=== PATIENT | female | born 1990 | race Caucasian/White ===

== ENCOUNTER 2018-07-03 15:15 | Emergency (ER) | payer SELFPAY ==
[~2018-07-03 15:15] MED LIST: METR500T15 PO; NAPR550T22 PO; ONDA4TAB PO; PROM-110 PO; TRAM-420 PO
--- NOTE | 2018-07-03 15:53 | ER Report ---
History and Physical Time Seen By MD: 15:42 Hx. of Stated Complaint: wants a psych eval, no feeling suicidal and does not want admit HPI/ROS CHIEF COMPLAINT: Manic HISTORY OF PRESENT ILLNESS: 28-year-old female patient presents to the emergency room with complaint of being manic. Patient states that she has been manic for the past few weeks. He states that she's really been eating. She states that she is sleeping some. But states that she has been going at the bars and drinking heavily. She states that she did cheat on her fianc once. She states that she is not having any suicidal ideation. She states that she has not had any thoughts of self-harm. She has had episodes of self-harm approximately one year ago. She states that she is being started on the new medication which per prescribed by an outside provider. She states that she has an appointment with counseling tomorrow. She states she has lots of plans for lab work as well as for job. When asked patient to be admitted she states she would prefer not to. REVIEW OF SYSTEMS: Respiratory: No cough, no dyspnea. Cardiovascular: No chest pain, no palpitations. Gastrointestinal: No vomiting, no abdominal pain. Musculoskeletal: No back pain. Allergies: Coded Allergies: No Known Drug Allergies (Unverified , 11/06/15) Home Meds Reported Medications [rezalti] No Conflict Check 07/03/18 Discontinued Reported Medications Metronidazole (METRONIDAZOLE) 500 Mg Tablet, 500 MG PO BID, TAB 11/06/15 Past Medical/Surgical History Patient has a past medical history of ovarian cyst, frequent UTI, pelvic fracture, hypothyroidism, prior meth abuse, bipolar, anxiety, depression, suicide attempt. Patient has surgical history of an ovary removed. Reviewed Nurses Notes: Yes Hx Smoking: No Smoking Status: Never Smoker Exposure to Second Hand Smoke?: Yes Hx Substance Use Disorder: Yes (prior meth use) Hx Alcohol Use: Yes Constitutional Vital Sign - Last 24 Hours 07/03/18 07/03/18 07/03/18 15:35 17:03 17:08 Temp 97.0 Pulse 82 Resp 18 B/P (MAP) 129/94 127/86 (100) Pulse Ox 92 O2 Delivery Room Air Room Air Physical Exam General Appearance: The patient is alert, has no immediate need for airway protection and no current signs of toxicity. Respiratory: Chest is non tender, lungs are clear to auscultation. Cardiac: regular rate and rhythm Gastrointestinal: Abdomen is soft and non tender, no masses, bowel sounds normal. Musculoskeletal: Neck: Neck is supple and non tender. Extremities have full range of motion and are non tender. Skin: No rashes or lesions. DIFFERENTIAL DIAGNOSIS: After history and physical exam differential diagnosis was considered for depression, manic episode. Medical Decision Making Data Points Result Diagram: 07/03/18 1622 07/03/18 1622 Laboratory Hematology Test 07/03/18 15:35 07/03/18 16:22 Urine Color Yellow Urine Clarity Slightly-cloudy Urine pH 5.0 pH (4.8-9.5) Urine Specific [place] 1.021 Urine Protein Negative mg/dL (NEGATIVE) Urine Glucose (UA) Negative mg/dL (NEGATIVE) Urine Ketones Negative mg/dL (NEGATIVE) Urine Blood Negative (NEGATIVE) Urine Nitrite Negative (NEGATIVE) Urine Bilirubin Negative (NEGATIVE) Urine Urobilinogen Negative mg/dL (0.2-1.9) Urine Leukocyte Esterase Negative (NEGATIVE) Urine RBC None /HPF (0-2/HPF) Urine WBC 1 /HPF (0-5/HPF) Urine Squamous Epithelial Cells Many /LPF (</=FEW) Urine Bacteria Negative /HPF (NONE-FEW) Urine Mucus None /HPF (NONE-FEW) Urine HCG, Qualitative Negative (NEGATIVE) Urine Opiates Screen Negative Urine Barbiturates Screen Negative Ur Tricyclic Antidepressants Screen Negative Urine Phencyclidine Screen Negative Urine Amphetamines Screen Negative Urine Benzodiazepines Screen Negative Urine Cocaine Screen Negative Urine Cannabinoids Screen Positive Red Blood Count 4.59 M/uL (4.17-5.56) Mean Corpuscular Volume 91.8 fL (80.0-96.0) Mean Corpuscular Hemoglobin 31.2 pg (26.0-33.0) Mean Corpuscular Hemoglobin Concent 34.0 g/dL (32.0-36.0) Red Cell Distribution Width 13.1 % (11.5-14.5) Mean Platelet Volume 9.3 fL (7.2-11.1) Neutrophils (%) (Auto) 68.1 % (39.4-72.5) Lymphocytes (%) (Auto) 22.5 % (17.6-49.6) Monocytes (%) (Auto) 8.1 % (4.1-12.4) Eosinophils (%) (Auto) 0.5 % (0.4-6.7) Basophils (%) (Auto) 0.8 % (0.3-1.4) Nucleated RBC Relative Count (auto) 0.0 /100WBC Neutrophils # (Auto) 6.2 K/uL (2.0-7.4) Lymphocytes # (Auto) 2.0 K/uL (1.3-3.6) Monocytes # (Auto) 0.7 K/uL (0.3-1.0) Eosinophils # (Auto) 0.0 K/uL (0.0-0.5) Basophils # (Auto) 0.1 K/uL (0.0-0.1) Nucleated RBC Absolute Count (auto) 0.00 K/uL Sodium Level 137 mmol/L (137-145) Potassium Level 4.4 mmol/L (3.5-5.0) Chloride Level 103 mmol/L (98-107) Carbon Dioxide Level 23 mmol/L (22-31) Blood Urea Nitrogen 19 mg/dl (7-18) Creatinine 0.70 mg/dl (0.52-1.04) Glomerular Filtration Rate Calc > 60.0 Random Glucose 95 mg/dl (75-110) Calcium Level 9.6 mg/dl (8.4-10.2) Magnesium Level 1.9 mg/dl (1.7-2.2) Total Bilirubin 0.3 mg/dl (0.2-1.3) Aspartate Amino Transf (AST/SGOT) 22 U/L (0-35) Alanine Aminotransferase (ALT/SGPT) 24 U/L (0-56) Alkaline Phosphatase 85 U/L (0-126) Total Protein 9.2 g/dl (6.3-8.2) Albumin 4.9 g/dl (3.5-5.0) Salicylates Level < 10 mg/L Salicylate Last Dose Date unk Acetaminophen Level < 10 ug/ml Serum Alcohol < 10 mg/dl Chemistry Test 07/03/18 15:35 07/03/18 16:22 Urine Color Yellow Urine Clarity Slightly-cloudy Urine pH 5.0 pH (4.8-9.5) Urine Specific [place] 1.021 Urine Protein Negative mg/dL (NEGATIVE) Urine Glucose (UA) Negative mg/dL (NEGATIVE) Urine Ketones Negative mg/dL (NEGATIVE) Urine Blood Negative (NEGATIVE) Urine Nitrite Negative (NEGATIVE) Urine Bilirubin Negative (NEGATIVE) Urine Urobilinogen Negative mg/dL (0.2-1.9) Urine Leukocyte Esterase Negative (NEGATIVE) Urine RBC None /HPF (0-2/HPF) Urine WBC 1 /HPF (0-5/HPF) Urine Squamous Epithelial Cells Many /LPF (</=FEW) Urine Bacteria Negative /HPF (NONE-FEW) Urine Mucus None /HPF (NONE-FEW) Urine HCG, Qualitative Negative (NEGATIVE) Urine Opiates Screen Negative Urine Barbiturates Screen Negative Ur Tricyclic Antidepressants Screen Negative Urine Phencyclidine Screen Negative Urine Amphetamines Screen Negative Urine Benzodiazepines Screen Negative Urine Cocaine Screen Negative Urine Cannabinoids Screen Positive White Blood Count 9.1 k/uL (4.5-11.0) Red Blood Count 4.59 M/uL (4.17-5.56) Hemoglobin 14.3 g/dL (12.0-16.0) Hematocrit 42.1 % (34.0-47.0) Mean Corpuscular Volume 91.8 fL (80.0-96.0) Mean Corpuscular Hemoglobin 31.2 pg (26.0-33.0) Mean Corpuscular Hemoglobin Concent 34.0 g/dL (32.0-36.0) Red Cell Distribution Width 13.1 % (11.5-14.5) Platelet Count 471 K/uL (150-450) Mean Platelet Volume 9.3 fL (7.2-11.1) Neutrophils (%) (Auto) 68.1 % (39.4-72.5) Lymphocytes (%) (Auto) 22.5 % (17.6-49.6) Monocytes (%) (Auto) 8.1 % (4.1-12.4) Eosinophils (%) (Auto) 0.5 % (0.4-6.7) Basophils (%) (Auto) 0.8 % (0.3-1.4) Nucleated RBC Relative Count (auto) 0.0 /100WBC Neutrophils # (Auto) 6.2 K/uL (2.0-7.4) Lymphocytes # (Auto) 2.0 K/uL (1.3-3.6) Monocytes # (Auto) 0.7 K/uL (0.3-1.0) Eosinophils # (Auto) 0.0 K/uL (0.0-0.5) Basophils # (Auto) 0.1 K/uL (0.0-0.1) Nucleated RBC Absolute Count (auto) 0.00 K/uL Glomerular Filtration Rate Calc > 60.0 Calcium Level 9.6 mg/dl (8.4-10.2) Magnesium Level 1.9 mg/dl (1.7-2.2) Total Bilirubin 0.3 mg/dl (0.2-1.3) Aspartate Amino Transf (AST/SGOT) 22 U/L (0-35) Alanine Aminotransferase (ALT/SGPT) 24 U/L (0-56) Alkaline Phosphatase 85 U/L (0-126) Total Protein 9.2 g/dl (6.3-8.2) Albumin 4.9 g/dl (3.5-5.0) Salicylates Level < 10 mg/L Salicylate Last Dose Date unk Acetaminophen Level < 10 ug/ml Serum Alcohol < 10 mg/dl Toxicology Test 07/03/18 15:35 07/03/18 16:22 Urine Opiates Screen Negative Urine Barbiturates Screen Negative Ur Tricyclic Antidepressants Screen Negative Urine Phencyclidine Screen Negative Urine Amphetamines Screen Negative Urine Benzodiazepines Screen Negative Urine Cocaine Screen Negative Urine Cannabinoids Screen Positive Salicylates Level < 10 mg/L Salicylate Last Dose Date unk Acetaminophen Level < 10 ug/ml Serum Alcohol < 10 mg/dl Urinalysis Test 07/03/18 15:35 Urine Color Yellow Urine Clarity Slightly-cloudy Urine pH 5.0 pH (4.8-9.5) Urine Specific [place] 1.021 Urine Protein Negative mg/dL (NEGATIVE) Urine Glucose (UA) Negative mg/dL (NEGATIVE) Urine Ketones Negative mg/dL (NEGATIVE) Urine Blood Negative (NEGATIVE) Urine Nitrite Negative (NEGATIVE) Urine Bilirubin Negative (NEGATIVE) Urine Urobilinogen Negative mg/dL (0.2-1.9) Urine Leukocyte Esterase Negative (NEGATIVE) Urine RBC None /HPF (0-2/HPF) Urine WBC 1 /HPF (0-5/HPF) Urine Squamous Epithelial Cells Many /LPF (</=FEW) Urine Bacteria Negative /HPF (NONE-FEW) Urine Mucus None /HPF (NONE-FEW) Urine HCG, Qualitative Negative (NEGATIVE) ED Course/Re-evaluation ED Course Patient was admitted to an exam room, history is obtained. Differential diagnoses were considered. On examination lungs are clear, heart is regular, abdomen is soft and nontender. I do worry patient is having some self- destructive behaviors caused by her manic episode. She has had intercourse with person is not her fianc. She also has been spending more money than she should at the bar. I did have the behavioral health integration technician come down and talk with her. We did discuss options and resources in the community. She also has the crisis line that she can call. Patient states she does feel significantly improved. She states she does not want to be admitted to behavioral health unit. She states she does feel better knowing that she will be able to be admitted and get her pete stabilized if need be. We will go ahead and discharge patient home at this time. She is to go ahead and take the medications that she has been prescribed by her primary care provider today. Patient and her fianc verbalized understanding and agreement with plan. Decision to Disposition Date: Jul 03, 2018 Decision to Disposition Time: 16:45 Depart Departure Latest Vital Signs Vital Signs Date Time Temp Pulse Resp B/P (MAP) Pulse Ox O2 Delivery O2 Flow Rate FiO2 07/03/18 17:08 82 92 Room Air 07/03/18 17:03 127/86 (100) 07/03/18 15:35 97.0 18 Impression: Primary Impression: Bipolar disorder, manic Condition: Condition Unchanged Disposition: HOME OR SELF-CARE Patient Instructions: Bipolar Disorder (ED) Additional Instructions: Follow up with your counselor tomorrow. Get plenty of rest. Try to avoid activities that could be self destructive. Return to the ER if condition worsens. Continue with current medications. NAN LANGLEY Jul 03, 2018 15:53
[2018-07-03] MEDS ORDERED: [UNRECOGNIZED DRUG - OTHER] (16:15)
[2018-07-03 16:29] LABS: PLATELET COUNT, AUTOMATED 471 K/uL (150-450)
[2018-07-03 17:03] VITALS: BP 127/86
== END 2018-07-03 17:18 | disposition home or self-care (01) ==
LOC: ER 15:59
DX: F31.89 Other bipolar disorder (principal)
CPT/HCPCS: 80305; 80320; 80329; 81001; 81025; 82040; 82247; 82310; 82374; 82435; 82565; 82947; 83735; 84075; 84132; 84155; 84295; 84443; 84450; 84460; 84520; 85025; 99283

== ENCOUNTER 2018-07-13 19:57 | Emergency (ER) | payer SELFPAY ==
[~2018-07-13 19:57] MED LIST changes: +[UNRECOGNIZED DRUG - OTHER]
[2018-07-13 20:02] VITALS: BP 129/91
--- NOTE | 2018-07-13 20:06 | ER Report ---
History and Physical Time Seen By MD: 20:06 HPI/ROS CHIEF COMPLAINT: Fall with loss of consciousness, difficulty concentrating since HISTORY OF PRESENT ILLNESS: 28-year-old female patient presents to emergency room with complaint of fall. She states that she had gone to [place] and went to the [place]. Patient states that she had gotten out of the [place] and slipped on the ice. She did hit her head and had a period of LOC. She states that she came to that she did have headache, irritability, difficulty concentrating. She states that has persisted since then. She states that she woke up this morning she is very groggy. She denies any vomiting, however she states that she has been nauseated. Patient states she has not taken any medication for this. The patient's significant other did consult with his father, who is a radiologist, who recommended that they get a CAT scan of her head. Patient states that she does have some neck pain and pain to the left upper arm. REVIEW OF SYSTEMS: Respiratory: No cough, no dyspnea. Cardiovascular: No chest pain, no palpitations. Gastrointestinal: No vomiting, no abdominal pain. Musculoskeletal: As noted above Allergies: Coded Allergies: No Known Drug Allergies (Unverified , 07/13/18) Home Meds Active Scripts Ondansetron Hcl (ZOFRAN) 4 Mg Tablet, 4 MG PO Q6H PRN for NAUSEA/VOMITING, #20 TAB Prov:NAN LANGLEY [facility] 07/13/18 Ketorolac Tromethamine (KETOROLAC TROMETHAMINE) 10 Mg Tab, 10 MG PO Q6H, #20 TAB Prov:NAN LANGLEY [facility] 07/13/18 Reported Medications [rezalti] No Conflict Check 07/03/18 Past Medical/Surgical History Patient has a past medical history of ovarian cyst, frequent UTI, pelvic fracture, hypothyroidism, prior meth abuse, alcohol abuse, bipolar, anxiety, depression, suicide attempt. Patient has a surgical history of surgery on her ovary. Reviewed Nurses Notes: Yes Hx Smoking: No Smoking Status: Never Smoker Exposure to Second Hand Smoke?: Yes Hx Substance Use Disorder: Yes (prior meth use) Hx Alcohol Use: Yes Constitutional Vital Sign - Last 24 Hours 07/13/18 20:02 Temp 98.3 Pulse 95 Resp 16 B/P (MAP) 129/91 Pulse Ox 97 O2 Delivery Room Air Physical Exam General Appearance: The patient is alert, has no immediate need for airway protection and no current signs of toxicity. Eyes: Pupils equal and round no injection. Pupils are equal round reactive to light, extraocular movements are intact. Respiratory: Chest is non tender, lungs are clear to auscultation. Cardiac: regular rate and rhythm Gastrointestinal: Abdomen is soft and non tender, no masses, bowel sounds normal. Musculoskeletal: Neck: Neck is supple and tender to palpation. Extremities have full range of motion and are non tender. Skin: No rashes or lesions. Neuro: Patient is alert and oriented 4, cranial nerves II through XII grossly intact, patient was able to complete 3 word recall 3/3 at zero minutes, 3/3 at 5 minutes. Patient was able to complete serial sevens. DIFFERENTIAL DIAGNOSIS: After history and physical exam differential diagnosis was considered for head injury including but not limited to concussion, skull fracture, intraparenchymal contusion, subarachnoid, subdural and epidural hematoma. Medical Decision Making Data Points Laboratory Hematology Test 07/13/18 20:24 Urine Color Yellow Urine Clarity Clear Urine pH 6.0 pH (4.8-9.5) Urine Specific [place] 1.013 Urine Protein Negative mg/dL (NEGATIVE) Urine Glucose (UA) Negative mg/dL (NEGATIVE) Urine Ketones Negative mg/dL (NEGATIVE) Urine Blood Negative (NEGATIVE) Urine Nitrite Negative (NEGATIVE) Urine Bilirubin Negative (NEGATIVE) Urine Urobilinogen Negative mg/dL (0.2-1.9) Urine Leukocyte Esterase Negative (NEGATIVE) Urine RBC 1 /HPF (0-2/HPF) Urine WBC None /HPF (0-5/HPF) Urine Squamous Epithelial Cells Many /LPF (</=FEW) Urine Bacteria Negative /HPF (NONE-FEW) Urine Mucus None /HPF (NONE-FEW) Chemistry Test 07/13/18 20:24 Urine Color Yellow Urine Clarity Clear Urine pH 6.0 pH (4.8-9.5) Urine Specific [place] 1.013 Urine Protein Negative mg/dL (NEGATIVE) Urine Glucose (UA) Negative mg/dL (NEGATIVE) Urine Ketones Negative mg/dL (NEGATIVE) Urine Blood Negative (NEGATIVE) Urine Nitrite Negative (NEGATIVE) Urine Bilirubin Negative (NEGATIVE) Urine Urobilinogen Negative mg/dL (0.2-1.9) Urine Leukocyte Esterase Negative (NEGATIVE) Urine RBC 1 /HPF (0-2/HPF) Urine WBC None /HPF (0-5/HPF) Urine Squamous Epithelial Cells Many /LPF (</=FEW) Urine Bacteria Negative /HPF (NONE-FEW) Urine Mucus None /HPF (NONE-FEW) Urinalysis Test 07/13/18 20:24 Urine Color Yellow Urine Clarity Clear Urine pH 6.0 pH (4.8-9.5) Urine Specific [place] 1.013 Urine Protein Negative mg/dL (NEGATIVE) Urine Glucose (UA) Negative mg/dL (NEGATIVE) Urine Ketones Negative mg/dL (NEGATIVE) Urine Blood Negative (NEGATIVE) Urine Nitrite Negative (NEGATIVE) Urine Bilirubin Negative (NEGATIVE) Urine Urobilinogen Negative mg/dL (0.2-1.9) Urine Leukocyte Esterase Negative (NEGATIVE) Urine RBC 1 /HPF (0-2/HPF) Urine WBC None /HPF (0-5/HPF) Urine Squamous Epithelial Cells Many /LPF (</=FEW) Urine Bacteria Negative /HPF (NONE-FEW) Urine Mucus None /HPF (NONE-FEW) EKG/Imaging Imaging Head CT scan without contrast COMPARISONS: None ADDITIONAL PERTINENT HISTORY: Fall with loss of consciousness yesterday. TECHNIQUE: Multiple axial images were obtained from the skull base to the vertex without IV contrast. One of the following dose optimization techniques was utilized in the performance of this exam: Automated exposure control; adjustment of the mA and/or kV according to the patient's size; or use of an iterative reconstruction technique. Specific details can be referenced in the facility's radiology CT exam operational policy. FINDINGS: Midline shift: Negative Ventricles: Negative Brain parenchyma: Negative Extra-axial spaces: Negative Intracranial vasculature: Negative Osseous structures: Negative Paranasal sinuses and mastoid air cells: Complete opacification of the right sphenoid sinus. Surrounding soft tissues and orbits: Negative IMPRESSION: 1. Underlying paranasal sinus disease. 2. Otherwise normal head CT scan without contrast. Report Dictated By: Bandar Roper MD at 07/13/2018 9:22 PM Report E-Signed By: Bandar Roper MD at 07/13/2018 9:25 PM HUMERUS LEFT COMPARISONS: None. ADDITIONAL PERTINENT HISTORY: Left arm bruising after fall FINDINGS: Osseous structures: Negative. Joint spaces: Negative. Surrounding soft tissues: Negative. IMPRESSION: Normal views of the left humerus. Report Dictated By: Bandar Roper MD at 07/13/2018 9:30 PM Report E-Signed By: Bandar Roper MD at 07/13/2018 9:30 PM ED Course/Re-evaluation ED Course Patient was admitted and examined, history and physical were obtained. Differential diagnoses were considered. On examination lungs are clear, heart is regular, abdomen is soft and nontender. Patient did have some tenderness to the cervical spine. She also has some tenderness to the left humerus. A CT scan of the head, cervical spine, x-ray of the left humerus was done. The imaging results were negative. A urinalysis was obtained which was negative. Patient did request something for pain. We did go ahead and give her a shot of Toradol. On evaluation patient states she is having pain to the right arm secondary to the Toradol. She is unsure if this was a medication that she is allergic to. There is no rash or hives noted. We will go ahead and discharge patient home at this time. She is follow-up with her primary care provider in the next week. I will send in a prescription for Toradol that she can take as needed for headache. I recommended limiting TV and computer time to bare minimum. She is return emergency room if condition worsens. Patient verbalized understanding and agr eement with plan. The significant other did request images of the CT scans be sent to his father who is a radiologist. I informed him that was something that could be done, although they would have to go to medical records to sign a release in the near get a disc that they would be to mail to him. Decision to Disposition Date: Jul 13, 2018 Decision to Disposition Time: 21:37 Depart Departure Latest Vital Signs Vital Signs Date Time Temp Pulse Resp B/P (MAP) Pulse Ox O2 Delivery O2 Flow Rate FiO2 07/13/18 20:02 98.3 95 16 129/91 97 Room Air Impression: Primary Impression: Concussion Condition: Improved Disposition: HOME OR SELF-CARE New Scripts Ondansetron Hcl (ZOFRAN) 4 Mg Tablet 4 MG PO Q6H PRN for NAUSEA/VOMITING, #20 TAB Prov: NAN LANGLEY 07/13/18 Ketorolac Tromethamine (KETOROLAC TROMETHAMINE) 10 Mg Tab 10 MG PO Q6H, #20 TAB Prov: NAN LANGLEY 07/13/18 Patient Instructions: Concussion (ED) Additional Instructions: Get plenty of rest. Limit activity by pain. Limit TV and computer time. Monitor for confusion, increased irritability, uncontrollable vomiting, worsening headache or difficulty to arouse. Return to the ER if those are to occur. Follow up with your primary care provider in the next week. Problem Qualifiers Primary Impression: Concussion Encounter type: initial encounter Loss of consciousness presence/duration: with LOC of 30 min or less Qualified Codes: S06.0X1A - Concussion with loss of consciousness of 30 minutes or less, initial encounter NAN LANGLEY Jul 13, 2018 20:06
--- NOTE | 2018-07-13 21:30 | RADIOLOGY IMAGING REPORT ---
FACILITY: [facility] PATIENT NAME: Lindy Verma : 1990 MR: [id number] V: [id number] EXAM DATE: ORDERING PHYSICIAN: NAN LANGLEY TECHNOLOGIST: Location: [facility] [place] Patient: Lindy Verma : 1990 Visit/Account:[id number] Date of Sevice: 07/13/[address] scan without contrast COMPARISONS: None ADDITIONAL PERTINENT HISTORY: Fall with loss of consciousness yesterday. TECHNIQUE: Multiple axial images were obtained from the skull base to the vertex without IV contrast . One of the following dose optimization techniques was utilized in the performance of this exam: Aut omated exposure control; adjustment of the mA and/or kV according to the patient's size; or use of an iterative reconstruction technique. Specific details can be referenced in the facility's radiology CT exam operational policy. FINDINGS: Midline shift: Negative Ventricles: Negative Brain parenchyma: Negative Extra-axial spaces: Negative Intracranial vasculature: Negative Osseous structures: Negative Paranasal sinuses and mastoid air cells: Complete opacification of the right sphenoid sinus. Surrounding soft tissues and orbits: Negative IMPRESSION: 1. Underlying paranasal sinus disease. 2. Otherwise normal head CT scan without contrast. Report Dictated By: Bandar Roper MD at 07/13/2018 9:22 PM Report E-Signed By: Bandar Roper MD at 07/13/2018 9:25 PM WSN:[id number]
--- NOTE | 2018-07-13 21:33 | RADIOLOGY IMAGING REPORT ---
[place] [facility] [place] NAME: Lindy Verma : 1990 MR: [id number] V: [id number] EXAM DATE: ORDERING PHYSICIAN: NAN LANGLEY TECHNOLOGIST: Location: [facility] Patient: Lindy Verma : 1990 Visit/Account:[id number] Date of Sevice: 07/13/2018 HUMERUS LEFT COMPARISONS: None. ADDITIONAL PERTINENT HISTORY: Left arm bruising after fall FINDINGS: Osseous structures: Negative. Joint spaces: Negative. Surrounding soft tissues: Negative. IMPRESSION: Normal views of the left humerus. Report Dictated By: Bandar Roper MD at 07/13/2018 9:30 PM Report E-Signed By: Bandar Roper MD at 07/13/2018 9:30 PM WSN:[id number]
--- NOTE | 2018-07-13 21:36 | RADIOLOGY IMAGING REPORT ---
FACILITY: [facility] [place] PATIENT NAME: Lindy Verma : 1990 MR: [id number] V: [id number] EXAM DATE: ORDERING PHYSICIAN: NAN LANGLEY TECHNOLOGIST: Location: [facility] Patient: Lindy Verma : 1990 Visit/Account:[id number] Date of Sevice: 07/13/2018 CT VERTEBRA CERVICAL (NON CON) COMPARISONS: None. ADDITIONAL PERTINENT HISTORY: Fall with headache TECHNIQUE: Multiple axial images were obtained from the skull base through the upper thoracic spine with coronal and sagittal reformatted images obtained without IV contrast. One of the following dose optimization techniques was utilized in the performance of this exam: Automated exposure control; adj ustment of the mA and/or kV according to the patient's size; or use of an iterative reconstruction t echnique. Specific details can be referenced in the facility's radiology CT exam operational policy. FINDINGS. Vertebral body heights and alignment: Negative. Vertebral bodies: Negative. Disc spaces: None. Cranial cervical junction: Negative. Cervical thoracic junction: Negative. Surrounding soft tissues: Low-attenuation lesion involving the right lobe of the thyroid measuring 1. 2 cm for which a thyroid sonogram would be of further benefit. Otherwise negative Lung apices: Negative. IMPRESSION: 1. No acute appearing bony abnormality involving the cervical spine. Report Dictated By: Bandar Roper MD at 07/13/2018 9:31 PM Report E-Signed By: Bandar Roper MD at 07/13/2018 9:33 PM WSN:[id number]
[2018-07-13] MEDS ORDERED: KET10 PO (21:40)
[2018-07-13] MEDS ORDERED: KETOROLAC 30 MG/ML VIAL IM ONE (21:40)
[2018-07-13] MEDS ORDERED: ONDA4TAB97 PO (21:40)
== END 2018-07-13 22:00 | disposition home or self-care (01) ==
LOC: ER 20:08
DX: S06.0X1A Concussion with loss of consciousness of 30 minutes or less, initial encounter (principal); W00.0XXA Fall on same level due to ice and snow, initial encounter
CPT/HCPCS: 70450; 72125; 73060; 81001; 96372; 99284; J1885

== ENCOUNTER 2018-07-24 23:14 | Emergency (ER) | payer SELFPAY ==
[~2018-07-24 23:14] MED LIST changes: +KET10 PO; +ONDA4TAB97 PO
--- NOTE | 2018-07-24 23:18 | ER Report ---
History and Physical Time Seen By MD: 23:18 HPI/ROS CHIEF COMPLAINT: Methamphetamine use HISTORY OF PRESENT ILLNESS: Patient is a 28-year-old female here with complaints of agitation, shaking, twitching, left-sided chest discomfort. Patient rep ortedly used meth starting on July 23 1800 until July 24 at 10:00. Patient subsequently developed twitching, jerking motions, left-sided chest discomfort. Patient attempted to take a sleep aid this evening without relief of symptoms. Patient is afebrile, hemodynamically stable at time of evaluation. REVIEW OF SYSTEMS: Constitutional: No fever, no chills. + Jerking motions Eyes: No discharge. ENT: No sore throat. Cardiovascular: + right sided chest discomfort, no palpitations. Respiratory: No cough, no shortness of breath. Gastrointestinal: No abdominal pain, no vomiting. Genitourinary: No hematuria. Musculoskeletal: No back pain. Skin: No rashes. Neurological: + Intermittent jerking motions, twitching, anxiety Allergies: Coded Allergies: No Known Drug Allergies (Unverified , 07/13/18) Home Meds Active Scripts Ondansetron Hcl (ZOFRAN) 4 Mg Tablet, 4 MG PO Q6H PRN for NAUSEA/VOMITING, #20 TAB Prov:NAN LANGLEY [facility] 07/13/18 Ketorolac Tromethamine (KETOROLAC TROMETHAMINE) 10 Mg Tab, 10 MG PO Q6H, #20 TAB Prov:NAN LANGLEY [facility] 07/13/18 Reported Medications [rezalti] No Conflict Check 07/03/18 Hx Smoking: No Smoking Status: Never Smoker Exposure to Second Hand Smoke?: Yes Hx Substance Use Disorder: Yes (prior meth use) Hx Alcohol Use: Yes Constitutional Vital Sign - Last 24 Hours 07/24/18 07/24/18 07/24/18 07/24/18 23:14 23:24 23:30 23:44 Temp 98.0 Pulse 112 101 Resp 20 41 B/P (MAP) 129/105 129/105 (113) 129/95 (106) Pulse Ox 96 97 O2 Delivery Room Air 07/25/18 07/25/18 07/25/18 07/25/18 00:00 00:05 00:45 01:00 Pulse 109 Resp 25 B/P (MAP) 121/94 (103) 139/95 (110) 130/99 (109) Pulse Ox 98 07/25/18 07/25/18 07/25/18 01:18 01:18 01:30 Pulse 80 80 Resp 9 9 B/P (MAP) 133/96 (108) Intake and Output 07/24/18 07/24/18 07/25/18 15:00 23:00 07:00 Intake Total 1000 ml Balance 1000 ml Physical Exam General Appearance: The patient is alert, has no immediate need for airway protection and no signs of toxicity. Anxious appearing, uncomfortable Eyes: Pupils equal and round no pallor or injection. ENT, Mouth: Mucous membranes are moist. Respiratory: There are no retractions, lungs are clear to auscultation. Cardiovascular: Regular rate and rhythm. Gastrointestinal: Abdomen is soft and non tender, no masses, bowel sounds normal. Neurological: Twitching motions, anxious appearing Skin: Warm and dry, no rashes. Musculoskeletal: Neck is supple non tender. Extremities are nontender, nonswollen and have full range of motion. DIFFERENTIAL DIAGNOSIS: After history and physical exam differential diagnosis was considered for methamphetamine use, methamphetamine withdrawal, dehydration, ischemia, anxiety Medical Decision Making Data Points Result Diagram: 07/25/18 0008 07/25/18 0036 Laboratory Hematology Test 07/24/18 23:24 07/25/18 00:08 07/25/18 00:36 Urine Color Yellow Urine Clarity Clear Urine pH 7.0 pH (4.8-9.5) Urine Specific [place] 1.025 Urine Protein Negative mg/dL (NEGATIVE) Urine Glucose (UA) Negative mg/dL (NEGATIVE) Urine Ketones Trace mg/dL (NEGATIVE) Urine Blood Negative (NEGATIVE) Urine Nitrite Negative (NEGATIVE) Urine Bilirubin Negative (NEGATIVE) Urine Urobilinogen 2.0 mg/dL (0.2-1.9) Urine Leukocyte Esterase Negative (NEGATIVE) Urine RBC <1 /HPF (0-2/HPF) Urine WBC 2 /HPF (0-5/HPF) Urine Squamous Epithelial Cells Many /LPF (</=FEW) Urine Bacteria Negative /HPF (NONE-FEW) Urine Mucus Few /HPF (NONE-FEW) Urine HCG, Qualitative Negative (NEGATIVE) Urine Opiates Screen Negative Urine Barbiturates Screen Negative Ur Tricyclic Antidepressants Screen Negative Urine Phencyclidine Screen Negative Urine Amphetamines Screen Positive Urine Benzodiazepines Screen Negative Urine Cocaine Screen Negative Urine Cannabinoids Screen Positive Red Blood Count 4.74 M/uL (4.17-5.56) Mean Corpuscular Volume 92.6 fL (80.0-96.0) Mean Corpuscular Hemoglobin 31.8 pg (26.0-33.0) Mean Corpuscular Hemoglobin Concent 34.4 g/dL (32.0-36.0) Red Cell Distribution Width 13.3 % (11.5-14.5) Mean Platelet Volume 9.4 fL (7.2-11.1) Neutrophils (%) (Auto) 60.7 % (39.4-72.5) Lymphocytes (%) (Auto) 28.6 % (17.6-49.6) Monocytes (%) (Auto) 9.4 % (4.1-12.4) Eosinophils (%) (Auto) 0.8 % (0.4-6.7) Basophils (%) (Auto) 0.5 % (0.3-1.4) Nucleated RBC Relative Count (auto) 0.0 /100WBC Neutrophils # (Auto) 5.4 K/uL (2.0-7.4) Lymphocytes # (Auto) 2.5 K/uL (1.3-3.6) Monocytes # (Auto) 0.8 K/uL (0.3-1.0) Eosinophils # (Auto) 0.1 K/uL (0.0-0.5) Basophils # (Auto) 0.0 K/uL (0.0-0.1) Nucleated RBC Absolute Count (auto) 0.00 K/uL Sodium Level 143 mmol/L (137-145) Potassium Level 3.4 mmol/L (3.5-5.0) Chloride Level 107 mmol/L (98-107) Carbon Dioxide Level 22 mmol/L (22-31) Blood Urea Nitrogen 11 mg/dl (7-18) Creatinine 0.70 mg/dl (0.52-1.04) Glomerular Filtration Rate Calc > 60.0 Random Glucose 91 mg/dl (75-110) Calcium Level 10.2 mg/dl (8.4-10.2) Magnesium Level 2.1 mg/dl (1.7-2.2) Total Bilirubin 0.3 mg/dl (0.2-1.3) Aspartate Amino Transf (AST/SGOT) 20 U/L (0-35) Alanine Aminotransferase (ALT/SGPT) 19 U/L (0-56) Alkaline Phosphatase 84 U/L (0-126) Troponin I < 0.012 ng/ml Total Protein 8.5 g/dl (6.3-8.2) Albumin 4.8 g/dl (3.5-5.0) Salicylates Level < 10 mg/L Salicylate Last Dose Date unknown Acetaminophen Level < 10 ug/ml Serum Alcohol < 10 mg/dl Chemistry Test 07/24/18 23:24 07/25/18 00:08 07/25/18 00:36 Urine Color Yellow Urine Clarity Clear Urine pH 7.0 pH (4.8-9.5) Urine Specific [place] 1.025 Urine Protein Negative mg/dL (NEGATIVE) Urine Glucose (UA) Negative mg/dL (NEGATIVE) Urine Ketones Trace mg/dL (NEGATIVE) Urine Blood Negative (NEGATIVE) Urine Nitrite Negative (NEGATIVE) Urine Bilirubin Negative (NEGATIVE) Urine Urobilinogen 2.0 mg/dL (0.2-1.9) Urine Leukocyte Esterase Negative (NEGATIVE) Urine RBC <1 /HPF (0-2/HPF) Urine WBC 2 /HPF (0-5/HPF) Urine Squamous Epithelial Cells Many /LPF (</=FEW) Urine Bacteria Negative /HPF (NONE-FEW) Urine Mucus Few /HPF (NONE-FEW) Urine HCG, Qualitative Negative (NEGATIVE) Urine Opiates Screen Negative Urine Barbiturates Screen Negative Ur Tricyclic Antidepressants Screen Negative Urine Phencyclidine Screen Negative Urine Amphetamines Screen Positive Urine Benzodiazepines Screen Negative Urine Cocaine Screen Negative Urine Cannabinoids Screen Positive White Blood Count 8.9 k/uL (4.5-11.0) Red Blood Count 4.74 M/uL (4.17-5.56) Hemoglobin 15.1 g/dL (12.0-16.0) Hematocrit 43.9 % (34.0-47.0) Mean Corpuscular Volume 92.6 fL (80.0-96.0) Mean Corpuscular Hemoglobin 31.8 pg (26.0-33.0) Mean Corpuscular Hemoglobin Concent 34.4 g/dL (32.0-36.0) Red Cell Distribution Width 13.3 % (11.5-14.5) Platelet Count 465 K/uL (150-450) Mean Platelet Volume 9.4 fL (7.2-11.1) Neutrophils (%) (Auto) 60.7 % (39.4-72.5) Lymphocytes (%) (Auto) 28.6 % (17.6-49.6) Monocytes (%) (Auto) 9.4 % (4.1-12.4) Eosinophils (%) (Auto) 0.8 % (0.4-6.7) Basophils (%) (Auto) 0.5 % (0.3-1.4) Nucleated RBC Relative Count (auto) 0.0 /100WBC Neutrophils # (Auto) 5.4 K/uL (2.0-7.4) Lymphocytes # (Auto) 2.5 K/uL (1.3-3.6) Monocytes # (Auto) 0.8 K/uL (0.3-1.0) Eosinophils # (Auto) 0.1 K/uL (0.0-0.5) Basophils # (Auto) 0.0 K/uL (0.0-0.1) Nucleated RBC Absolute Count (auto) 0.00 K/uL Glomerular Filtration Rate Calc > 60.0 Calcium Level 10.2 mg/dl (8.4-10.2) Magnesium Level 2.1 mg/dl (1.7-2.2) Total Bilirubin 0.3 mg/dl (0.2-1.3) Aspartate Amino Transf (AST/SGOT) 20 U/L (0-35) Alanine Aminotransferase (ALT/SGPT) 19 U/L (0-56) Alkaline Phosphatase 84 U/L (0-126) Troponin I < 0.012 ng/ml Total Protein 8.5 g/dl (6.3-8.2) Albumin 4.8 g/dl (3.5-5.0) Salicylates Level < 10 mg/L Salicylate Last Dose Date unknown Acetaminophen Level < 10 ug/ml Serum Alcohol < 10 mg/dl Toxicology Test 07/24/18 23:24 07/25/18 00:36 Urine Opiates Screen Negative Urine Barbiturates Screen Negative Ur Tricyclic Antidepressants Screen Negative Urine Phencyclidine Screen Negative Urine Amphetamines Screen Positive Urine Benzodiazepines Screen Negative Urine Cocaine Screen Negative Urine Cannabinoids Screen Positive Salicylates Level < 10 mg/L Salicylate Last Dose Date unknown Acetaminophen Level < 10 ug/ml Serum Alcohol < 10 mg/dl Urinalysis Test 07/24/18 23:24 Urine Color Yellow Urine Clarity Clear Urine pH 7.0 pH (4.8-9.5) Urine Specific [place] 1.025 Urine Protein Negative mg/dL (NEGATIVE) Urine Glucose (UA) Negative mg/dL (NEGATIVE) Urine Ketones Trace mg/dL (NEGATIVE) Urine Blood Negative (NEGATIVE) Urine Nitrite Negative (NEGATIVE) Urine Bilirubin Negative (NEGATIVE) Urine Urobilinogen 2.0 mg/dL (0.2-1.9) Urine Leukocyte Esterase Negative (NEGATIVE) Urine RBC <1 /HPF (0-2/HPF) Urine WBC 2 /HPF (0-5/HPF) Urine Squamous Epithelial Cells Many /LPF (</=FEW) Urine Bacteria Negative /HPF (NONE-FEW) Urine Mucus Few /HPF (NONE-FEW) Urine HCG, Qualitative Negative (NEGATIVE) EKG/Imaging EKG Interpretation 12 lead EKG: Normal sinus rhythm ventricular rate 97 QTC 469 no ischemic changes Rhythm: normal sinus rhythm [place]: normal QRS: normal ST segments: normal Imaging PATIENT NAME: Lindy Verma : 1990 MR: [id number] V: [id number] EXAM DATE: ORDERING PHYSICIAN: BRIEN FUENTES TECHNOLOGIST: Location: [facility] [place] Patient: Lindy Verma : 1990 Visit/Account:[id number] Date of Sevice: 07/24/2018 CHEST SINGLE AP 07/24/2018 23:31 hours. HISTORY: Chest pain. COMPARISON: None. TECHNIQUE: Portable AP view of the chest. FINDINGS: Tubes/lines/hardware: There are external chest leads. Pulmonary/pleura: Lungs are clear. There is no pneumothorax or pleural effusion. Cardiomediastinal: Cardiac and mediastinal silhouettes are within normal limits. Bones/soft tissues: No acute osseous abnormality. The visible abdomen is normal. IMPRESSION: 1. No acute cardiopulmonary process. ED Course/Re-evaluation ED Course Patient is a 28-year-old female here with complaints of anxiety, twitching, chest discomfort, palpitations after using methamphetamines ending yesterday at 10:00 in the morning. Patient reports that she has had persistent symptoms for the course of the day. EKG was normal sinus rhythm with no ischemic changes or arrhythmias. Chest x-ray was clear. Labs were unremarkable. Electrolytes were stable. Patient is given Ativan and IV fluid bolus for hydration. Troponin was negative. I updated the patient regarding these findings and recommended cessation of drug use. Return precautions provided. PCP follow-up recommended Decision to Disposition Date: Jul 25, 2018 Decision to Disposition Time: 01:29 Depart Departure Latest Vital Signs Vital Signs Date Time Temp Pulse Resp B/P (MAP) Pulse Ox O2 Delivery O2 Flow Rate FiO2 07/25/18 01:30 133/96 (108) 07/25/18 01:18 80 9 07/25/18 00:05 98 07/24/18 23:14 98.0 Room Air Impression: Primary Impression: Methamphetamine abuse, episodic Condition: Improved Disposition: HOME OR SELF-CARE Referrals: JAVIER LEVY (PCP) Patient Instructions: Methamphetamine Abuse (ED) Additional Instructions: Please consider methamphetamine cessation. Today your labs, chest x-ray, EKG were found to be normal. Please drink plenty of water. Please follow-up with your family doctor in the next 24-48 hours. Please return if you have fevers, chills, chest pain, trouble breathing, hallucinations BRIEN FUENTES DO Jul 24, 2018 23:18
[2018-07-24] MEDS ORDERED: NS(*) 0.9% 1000 ML BAG 1,000 ML IV ONE (23:31)
[2018-07-24] MEDS ORDERED: LORazepam 1 MG TAB PO ONE (23:35)
[2018-07-25 00:29] LABS: PLATELET COUNT, AUTOMATED 465 K/uL (150-450)
--- NOTE | 2018-07-25 00:44 | RADIOLOGY IMAGING REPORT ---
FACILITY: [facility] - [place] PATIENT NAME: Lindy Verma : 1990 MR: [id number] V: [id number] EXAM DATE: ORDERING PHYSICIAN: BRIEN FUENTES TECHNOLOGIST: Location: [facility] Patient: Lindy Verma : 1990 Visit/Account:[id number] Date of Sevice: 07/24/2018 CHEST SINGLE AP 07/24/2018 23:31 hours. HISTORY: Chest pain. COMPARISON: None. TECHNIQUE: Portable AP view of the chest. FINDINGS: Tubes/lines/hardware: There are external chest leads. Pulmonary/pleura: Lungs are clear. There is no pneumothorax or pleural effusion. Cardiomediastinal: Cardiac and mediastinal silhouettes are within normal limits. Bones/soft tissues: No acute osseous abnormality. The visible abdomen is normal. IMPRESSION: 1. No acute cardiopulmonary process. Report Dictated By: Jeanie Benavides at 07/25/2018 12:40 AM Report E-Signed By: Jeanie Benavides at 07/25/2018 12:40 AM [id number]
[2018-07-25 01:30] VITALS: BP 133/96
--- NOTE | 2018-07-25 03:39 | EKG ---
FACILITY: [facility] - [place] PATIENT NAME: BITA RIVERA : [id number] MR: [id number] V: [id number] EXAM DATE: ORDERING PHYSICIAN: BRIEN FUENTES TECHNOLOGIST: MANJINDER Test Reason : CHEST PAIN Blood Pressure : / mmHG Vent. Rate : 097 BPM Atrial Rate : 097 BPM P-R Int : 122 ms QRS Dur : 082 ms QT Int : 370 ms P-R-T Axes : 050 062 048 degrees QTc Int : 469 ms Normal sinus rhythm Normal ECG No previous ECGs available Confirmed by Pollo Ambrosio ([id number]) on 07/25/2018 7:39:20 AM Referred By: Confirmed By:Pollo Yanez
== END 2018-07-25 01:52 | disposition home or self-care (01) ==
LOC: ER 23:28
DX: F15.10 Other stimulant abuse, uncomplicated (principal)
CPT/HCPCS: 36415; 71045; 80305; 80320; 80329; 81001; 81025; 83735; 84443; 84484; 85025; 93005; 96360; 99284; J7030; 82040; 82247; 82310; 82374; 82435; 82565; 82947; 84075; 84132; 84155; 84295; 84450; 84460; 84520

== ENCOUNTER 2018-10-08 12:51 | Emergency (ER) | payer OTHER ==
[2018-10-08] MEDS ORDERED: LEVO25TA57 PO (13:04)
[2018-10-08] MEDS ORDERED: SULF-198 PO (13:04)
[2018-10-08] MEDS ORDERED: NS(*) 0.9% 1000 ML BAG 1,000 ML IV ONE (13:06)
[2018-10-08] MEDS ORDERED: ONDANSETRON 4 MG/2 ML VIAL IVP ONE (13:10)
[2018-10-08] MEDS ORDERED: KETOROLAC 30 MG/ML VIAL IVP ONE (13:10)
[2018-10-08 13:38] LABS: PLATELET COUNT, AUTOMATED 453 K/uL (150-450)
--- NOTE | 2018-10-08 13:39 | ER Report ---
History and Physical Time Seen By MD: 13:00 Hx. of Stated Complaint: patient having severe right lower quadrant/pelvic pain that started today, patient having abdnormal vaginal bleeding, stating bleed through 3pads in an hour. patient having nausea associated with the pain. HPI/ROS CHIEF COMPLAINT: Abdominal pain HISTORY OF PRESENT ILLNESS: Patient is a 28 of female comes in with 1 day of suprapubic pain and tenderness has a history of ovarian cysts and she said her menstrual cramps are worse than they've been before denies any recent sexual activity patient states she has no history of fibroids does have history of ovarian cyst. Since her menses a little bit larger in more volume is has been in the past. Patient denies any vomiting but has been nauseated patient to the pain is dull and aching cramping localized suprapubic and the left suprapubic and left lower quadrant area. REVIEW OF SYSTEMS: Respiratory: No cough, no dyspnea. Cardiovascular: No chest pain, no palpitations. Gastrointestinal: Nausea abdominal pain Musculoskeletal: No back pain. Remainder of the 14 system rev: Yes Allergies: Coded Allergies: No Known Drug Allergies (Unverified , 07/13/18) Home Meds Reported Medications Sulfamethoxazole/Trimet 800-160 Mg Tab (BACTRIM DS TABLET) 1 Each Tablet, 1 TAB PO Q12H, TAB 10/08/18 Levothyroxine Sodium (SYNTHROID) 25 Mcg Tablet, 25 MCG PO QDAY 10/08/18 [rezalti] No Conflict Check 07/03/18 Discontinued Scripts Ondansetron Hcl (ZOFRAN) 4 Mg Tablet, 4 MG PO Q6H PRN for NAUSEA/VOMITING, #20 TAB Prov:NAN LANGLEY 07/13/18 Ketorolac Tromethamine (KETOROLAC TROMETHAMINE) 10 Mg Tab, 10 MG PO Q6H, #20 TAB Prov:NAN LANGLEY 07/13/18 Reviewed Nurses Notes: Yes Old Medical Records Reviewed: Yes Hx Smoking: No Smoking Status: Never Smoker Exposure to Second Hand Smoke?: Yes Hx Substance Use Disorder: Yes (current meth use) Hx Alcohol Use: Yes Constitutional Vital Sign - Last 24 Hours 10/08/18 10/08/18 10/08/18 10/08/18 12:59 13:00 13:06 13:18 Temp 98.7 Pulse 89 ??? Resp 20 21 B/P (MAP) 100/78 113/62 (79) 96/62 (73) Pulse Ox 95 97 O2 Delivery Room Air 10/08/18 10/08/18 10/08/18 10/08/18 13:21 13:30 13:36 13:51 Pulse 88 83 74 Resp 9 11 20 B/P (MAP) 108/75 (86) Pulse Ox 99 98 Physical Exam General Appearance: The patient is alert, has no immediate need for airway protection and no current signs of toxicity. [ ] Eyes: Pupils equal and round no injection. Respiratory: Chest is non tender, lungs are clear to auscultation. Cardiac: regular rate and rhythm [ ] Gastrointestinal: Pain with palpation of this region in the left lower quadrant area rebound guarding or masses normal bowel sounds Musculoskeletal: Neck: Neck is supple and non tender. Extremities have full range of motion and are non tender. Skin: No rashes or lesions. [ ] DIFFERENTIAL DIAGNOSIS: After history and physical exam differential diagnosis was considered for ovarian cysts ovarian torsion fibroids ectopic Medical Decision Making Data Points Result Diagram: 10/08/18 1320 10/08/18 1320 Laboratory Hematology Test 10/08/18 13:19 10/08/18 13:20 Urine Color Yellow Urine Clarity Clear Urine pH 8.0 pH (4.8-9.5) Urine Specific [place] 1.014 Urine Protein Negative mg/dL (NEGATIVE) Urine Glucose (UA) Negative mg/dL (NEGATIVE) Urine Ketones Negative mg/dL (NEGATIVE) Urine Blood Large (NEGATIVE) Urine Nitrite Negative (NEGATIVE) Urine Bilirubin Negative (NEGATIVE) Urine Urobilinogen Negative mg/dL (0.2-1.9) Urine Leukocyte Esterase Negative (NEGATIVE) Urine RBC 325 /HPF (0-2/HPF) Urine WBC 5 /HPF (0-5/HPF) Urine Squamous Epithelial Cells Many /LPF (</=FEW) Urine Bacteria Negative /HPF (NONE-FEW) Urine Mucus Few /HPF (NONE-FEW) Urine HCG, Qualitative Negative (NEGATIVE) Red Blood Count 4.76 M/uL (4.17-5.56) Mean Corpuscular Volume 91.5 fL (80.0-96.0) Mean Corpuscular Hemoglobin 30.9 pg (26.0-33.0) Mean Corpuscular Hemoglobin Concent 33.8 g/dL (32.0-36.0) Red Cell Distribution Width 13.4 % (11.5-14.5) Mean Platelet Volume 9.6 fL (7.2-11.1) Neutrophils (%) (Auto) 70.8 % (39.4-72.5) Lymphocytes (%) (Auto) 20.3 % (17.6-49.6) Monocytes (%) (Auto) 7.5 % (4.1-12.4) Eosinophils (%) (Auto) 0.4 % (0.4-6.7) Basophils (%) (Auto) 1.0 % (0.3-1.4) Nucleated RBC Relative Count (auto) 0.0 /100WBC Neutrophils # (Auto) 6.7 K/uL (2.0-7.4) Lymphocytes # (Auto) 1.9 K/uL (1.3-3.6) Monocytes # (Auto) 0.7 K/uL (0.3-1.0) Eosinophils # (Auto) 0.0 K/uL (0.0-0.5) Basophils # (Auto) 0.1 K/uL (0.0-0.1) Nucleated RBC Absolute Count (auto) 0.00 K/uL Prothrombin Time 13.4 seconds (12.0-14.4) Prothromb Time International Ratio 1.02 Activated Partial Thromboplast Time 35 seconds (23-35) Sodium Level 140 mmol/L (137-145) Potassium Level 3.8 mmol/L (3.5-5.0) Chloride Level 104 mmol/L (98-107) Carbon Dioxide Level 26 mmol/L (22-31) Blood Urea Nitrogen 9 mg/dl (7-18) Creatinine 0.70 mg/dl (0.52-1.04) Glomerular Filtration Rate Calc > 60.0 Random Glucose 101 mg/dl (75-110) Calcium Level 9.9 mg/dl (8.4-10.2) Total Bilirubin 0.2 mg/dl (0.2-1.3) Aspartate Amino Transf (AST/SGOT) 20 U/L (0-35) Alanine Aminotransferase (ALT/SGPT) 17 U/L (0-56) Alkaline Phosphatase 80 U/L (0-126) Total Protein 8.8 g/dl (6.3-8.2) Albumin 4.6 g/dl (3.5-5.0) Lipase 70 U/L (23-300) Serum Alcohol < 10 mg/dl Chemistry Test 10/08/18 13:19 10/08/18 13:20 Urine Color Yellow Urine Clarity Clear Urine pH 8.0 pH (4.8-9.5) Urine Specific [place] 1.014 Urine Protein Negative mg/dL (NEGATIVE) Urine Glucose (UA) Negative mg/dL (NEGATIVE) Urine Ketones Negative mg/dL (NEGATIVE) Urine Blood Large (NEGATIVE) Urine Nitrite Negative (NEGATIVE) Urine Bilirubin Negative (NEGATIVE) Urine Urobilinogen Negative mg/dL (0.2-1.9) Urine Leukocyte Esterase Negative (NEGATIVE) Urine RBC 325 /HPF (0-2/HPF) Urine WBC 5 /HPF (0-5/HPF) Urine Squamous Epithelial Cells Many /LPF (</=FEW) Urine Bacteria Negative /HPF (NONE-FEW) Urine Mucus Few /HPF (NONE-FEW) Urine HCG, Qualitative Negative (NEGATIVE) White Blood Count 9.5 k/uL (4.5-11.0) Red Blood Count 4.76 M/uL (4.17-5.56) Hemoglobin 14.7 g/dL (12.0-16.0) Hematocrit 43.6 % (34.0-47.0) Mean Corpuscular Volume 91.5 fL (80.0-96.0) Mean Corpuscular Hemoglobin 30.9 pg (26.0-33.0) Mean Corpuscular Hemoglobin Concent 33.8 g/dL (32.0-36.0) Red Cell Distribution Width 13.4 % (11.5-14.5) Platelet Count 453 K/uL (150-450) Mean Platelet Volume 9.6 fL (7.2-11.1) Neutrophils (%) (Auto) 70.8 % (39.4-72.5) Lymphocytes (%) (Auto) 20.3 % (17.6-49.6) Monocytes (%) (Auto) 7.5 % (4.1-12.4) Eosinophils (%) (Auto) 0.4 % (0.4-6.7) Basophils (%) (Auto) 1.0 % (0.3-1.4) Nucleated RBC Relative Count (auto) 0.0 /100WBC Neutrophils # (Auto) 6.7 K/uL (2.0-7.4) Lymphocytes # (Auto) 1.9 K/uL (1.3-3.6) Monocytes # (Auto) 0.7 K/uL (0.3-1.0) Eosinophils # (Auto) 0.0 K/uL (0.0-0.5) Basophils # (Auto) 0.1 K/uL (0.0-0.1) Nucleated RBC Absolute Count (auto) 0.00 K/uL Prothrombin Time 13.4 seconds (12.0-14.4) Prothromb Time International Ratio 1.02 Activated Partial Thromboplast Time 35 seconds (23-35) Glomerular Filtration Rate Calc > 60.0 Calcium Level 9.9 mg/dl (8.4-10.2) Total Bilirubin 0.2 mg/dl (0.2-1.3) Aspartate Amino Transf (AST/SGOT) 20 U/L (0-35) Alanine Aminotransferase (ALT/SGPT) 17 U/L (0-56) Alkaline Phosphatase 80 U/L (0-126) Total Protein 8.8 g/dl (6.3-8.2) Albumin 4.6 g/dl (3.5-5.0) Lipase 70 U/L (23-300) Serum Alcohol < 10 mg/dl Coagulation Test 10/08/18 13:20 Prothrombin Time 13.4 seconds Prothromb Time International Ratio 1.02 Activated Partial Thromboplast Time 35 seconds Toxicology Test 10/08/18 13:20 Serum Alcohol < 10 mg/dl Urinalysis Test 10/08/18 13:19 Urine Color Yellow Urine Clarity Clear Urine pH 8.0 pH (4.8-9.5) Urine Specific [place] 1.014 Urine Protein Negative mg/dL (NEGATIVE) Urine Glucose (UA) Negative mg/dL (NEGATIVE) Urine Ketones Negative mg/dL (NEGATIVE) Urine Blood Large (NEGATIVE) Urine Nitrite Negative (NEGATIVE) Urine Bilirubin Negative (NEGATIVE) Urine Urobilinogen Negative mg/dL (0.2-1.9) Urine Leukocyte Esterase Negative (NEGATIVE) Urine RBC 325 /HPF (0-2/HPF) Urine WBC 5 /HPF (0-5/HPF) Urine Squamous Epithelial Cells Many /LPF (</=FEW) Urine Bacteria Negative /HPF (NONE-FEW) Urine Mucus Few /HPF (NONE-FEW) Urine HCG, Qualitative Negative (NEGATIVE) ED Course/Re-evaluation ED Course ED course 28-year-old female comes in with some left lower quadrant pain and increasing menses she has a ultrasound confirming no torsion no sign of ectopic negative test negative labs negative urinalysis patient ultrasound does demonstrate some free fluid in the pelvis most likely secondary to ovarian cyst rupture she has had an oophorectomy on the right side which is consistent with her ultrasound findings. Patient be diagnosed with ovarian cyst Decision to Disposition Date: October 08, 2018 Decision to Disposition Time: 14:47 Depart Departure Latest Vital Signs Vital Signs Date Time Temp Pulse Resp B/P (MAP) Pulse Ox O2 Delivery O2 Flow Rate FiO2 10/08/18 13:51 74 20 98 10/08/18 13:30 108/75 (86) 10/08/18 12:59 98.7 Room Air Impression: Primary Impression: Ovarian cyst Condition: Improved Disposition: HOME OR SELF-CARE Referrals: JAVIER LEVY (PCP) 5 Days Patient Instructions: Ovarian Cyst (DC) WOOD LEDBETTER MD October 08, 2018 13:39
[2018-10-08 13:50] LABS: INR 1.02
--- NOTE | 2018-10-08 14:44 | RADIOLOGY IMAGING REPORT ---
FACILITY: [facility] [place] PATIENT NAME: Lindy Whipple : 1990 MR: [id number] V: [id number] EXAM DATE: ORDERING PHYSICIAN: WOOD LEDBETTER TECHNOLOGIST: Location: [facility] Patient: Lindy Whipple : 1990 Visit/Account:[id number] Date of Sevice: 10/08/2018 Transvaginal pelvic ultrasound INDICATION: Pain. History of right oophorectomy COMPARISON: None Available FINDINGS: Uterus measures 7.1 x 3.0 x 4.2 cm with no focal precarinal abnormality of the uterus. Double wall endometrial stripe measures 4 mm and appears homogenous in echotexture. There is no free fluid in the cul-de-sac. Urinary bladder is empty. Pelvic vessels appear unremarkable on this examination. Right ovary is surgically absent.. Left ovary measures 4.0 x 3.0 x 2.6 cm and shows normal blood flow and contains a few small follicles . Small of fluid adjacent to left ovary suggested. IMPRESSION: 1. Small follicles left ovary with adjacent small amount of fluid could relate to recent ruptured cys t. 2. No focal abnormality of the uterus. Report Dictated By: Dalton English MD at 10/08/2018 2:36 PM Report E-Signed By: Dalton English MD at 10/08/2018 2:39 PM [id number]
[2018-10-08 14:55] VITALS: BP 96/68
== END 2018-10-08 15:05 | disposition home or self-care (01) ==
LOC: ER 13:18
DX: N83.202 Unspecified ovarian cyst, left side (principal)
CPT/HCPCS: 76830; 80320; 81001; 81025; 83690; 85025; 85610; 85730; 96361; 96374; 96375; 99284; J1885; J2405; J7030; 82040; 82247; 82310; 82374; 82435; 82565; 82947; 84075; 84132; 84155; 84295; 84450; 84460; 84520

== ENCOUNTER 2018-11-30 20:24 | Emergency (ER) | payer SELFPAY ==
[~2018-11-30 20:24] MED LIST changes: +LEVO25TA57 PO; +SULF-198 PO
[2018-11-30 20:31] VITALS: BP 116/81
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
[2018-11-30 21:16] LABS: INR 0.95
[2018-11-30 21:19] LABS: PLATELET COUNT, AUTOMATED 483 K/uL (150-450)
--- NOTE | 2018-11-30 22:54 | RADIOLOGY IMAGING REPORT ---
FACILITY: [facility] PATIENT NAME: Lindy Whipple : 1990 MR: [id number] V: [id number] EXAM DATE: ORDERING PHYSICIAN: IVIS BURGESS TECHNOLOGIST: Location: [facility] [place]: Lindy Whipple : 1990 Visit/Account:[id number] Date of Sevice: 11/30/2018 EXAMINATION: CT head without IV contrast HISTORY: Fall, pain TECHNIQUE: Axial CT images of the head were obtained from the vertex to the skull base without IV c ontrast, with coronal and sagittal 2D reconstructed images. One of the following dose optimization techniques was utilized in the performance of this exam: Autom ated exposure control; adjustment of the mA and/or kV according to the patient's size; or use of an i terative reconstruction technique. Specific details can be referenced in the facility's radiology C T exam operational policy. COMPARISON: 07/13/2018. FINDINGS: The intracranial contents are unremarkable. No CT evidence of intracranial hemorrhage or mass effect . No midline shift or extra-axial fluid collections. Tran-white differentiation is maintained. The calvarium is intact. Partial opacification of the right sphenoid sinus, unchanged from prior. Th e visualized paranasal sinuses and mastoid air cells are otherwise unopacified. IMPRESSION: No CT evidence of acute intracranial pathology. Stable exam. Report Dictated By: Mychal Lewis MD at 11/30/2018 10:44 PM Report E-Signed By: Mychal Lewis MD at 11/30/2018 10:46 PM WSN:[id number]
--- NOTE | 2018-11-30 22:55 | RADIOLOGY IMAGING REPORT ---
FACILITY: [facility] PATIENT NAME: Lindy Whipple : 1990 MR: [id number] V: [id number] EXAM DATE: ORDERING PHYSICIAN: IVIS BURGESS TECHNOLOGIST: Location: [facility] Patient: Lindy Whipple : 1990 Visit/Account:[id number] Date of Sevice: 11/30/2018 EXAMINATION: CT cervical spine without IV contrast HISTORY: Fall, pain TECHNIQUE: Thin axial CT images of the cervical spine were obtained without IV contrast, with sagit alejo and coronal 2D reconstructed images. One of the following dose optimization techniques was utilized in the performance of this exam: Autom ated exposure control; adjustment of the mA and/or kV according to the patient's size; or use of an i terative reconstruction technique. Specific details can be referenced in the facility's radiology C T exam operational policy. COMPARISON: 07/13/2018. FINDINGS: The cervical spine is negative for acute fracture or subluxation. Normal alignment. Vertebral body height and disc spaces are preserved. The dens is intact. The craniocervical junction demonstrates normal alignment. IMPRESSION: Negative cervical spine CT. Report Dictated By: Mychal Lewis MD at 11/30/2018 10:46 PM Report E-Signed By: Mychal Lewis MD at 11/30/2018 10:48 PM WSN:[id number]
--- NOTE | 2018-11-30 23:04 | RADIOLOGY IMAGING REPORT ---
[place] [facility] [place] Lindy Whipple : 1990 MR: [id number] V: [id number] EXAM DATE: ORDERING PHYSICIAN: IVIS BURGESS TECHNOLOGIST: Location: [facility] - [place] Patient: Lindy Whipple : 1990 Visit/Account:[id number] Date of Sevice: 11/30/2018 EXAMINATION: CT thoracic spine without IV contrast HISTORY: Fall, pain TECHNIQUE: Thin axial CT images of the thoracic spine were obtained without IV contrast, with sagit alejo and coronal 2D reconstructed images. One of the following dose optimization techniques was utilized in the performance of this exam: Autom ated exposure control; adjustment of the mA and/or kV according to the patient's size; or use of an i terative reconstruction technique. Specific details can be referenced in the facility's radiology C T exam operational policy. COMPARISON: None. FINDINGS: The thoracic spine is negative for acute fracture or subluxation. Normal alignment. Vertebral body he ight is maintained throughout the thoracic spine. Posterior elements are intact. Paraspinal soft tissues are unremarkable by CT. Visualized portions of the lungs are clear. No layering pleural effusion. IMPRESSION: Negative thoracic spine CT. Report Dictated By: Mychal Lewis MD at 11/30/2018 10:56 PM Report E-Signed By: Mychal Lewis MD at 11/30/2018 10:58 PM WSN:[id number]
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
[2018-12-01] MEDS ORDERED: FLUC150T40 PO (00:32)
== END 2018-11-30 23:51 | disposition home or self-care (01) ==
LOC: ER 20:35
DX: S06.0X1A Concussion with loss of consciousness of 30 minutes or less, initial encounter (principal); S16.1XXA Strain of muscle, fascia and tendon at neck level, initial encounter; F31.10 Bipolar disorder, current episode manic without psychotic features, unspecified; T74.11XA Adult physical abuse, confirmed, initial encounter; B37.9 Candidiasis, unspecified; M25.521 Pain in right elbow; H53.8 Other visual disturbances; R11.0 Nausea; R45.851 Suicidal ideations
CPT/HCPCS: 70450; 71045; 72125; 72128; 72131; 73030; 73080; 84703; 85025; 85610; 85730; 87210; 87491; 87591; 99284; L0172; 82040; 82247; 82310; 82374; 82435; 82565; 82947; 84075; 84132; 84155; 84295; 84450; 84460; 84520

== ENCOUNTER → 2018-12-18 | Emergency (ER) | payer SELFPAY ==
[~2018-12-18] MED LIST changes: +ACET/HYDROC 5/325MG TH ER ONLY 2 TAB/BOTTLE PO ONE; +FLUC150T40 PO; +LOR5/325 PO; +MORPHINE 4 MG/ML SDV IVP ONE; +NAPR-1043 PO; +NS(*) 0.9% 1000 ML BAG 1,000 ML IV ONE; +ONDA4TAB9 PO; +ONDANSETRON 4 MG ODT TH SL ONE; +ONDANSETRON 4 MG/2 ML VIAL IVP ONE; +TRIMETH/SULFA DS 160-800MG TAB PO ONE
--- NOTE | 2018-12-18 02:44 | ER Report ---
History and Physical Time Seen By MD: 02:36 Hx. of Stated Complaint: MID UPPER ABDOMINAL PAIN STARTING FOUR HOURS AGO. PT REPORTS NAUSEA JUST STARTED. PT IS ALSO ON MENSTURAL PERIOD HPI/ROS CHIEF COMPLAINT: Abdominal pain HISTORY OF PRESENT ILLNESS: This is a 28 year old female. She is having abdominal pain. Mid abdomen and suprapubic area. radiates to back. No shortness of breath or chest pain. Having nausea but no vomiting. Urinary frequency, but no dysuria. Having some fevers and chills. Currently on her menses. Allergies: Coded Allergies: No Known Drug Allergies (Unverified , 11/30/18) Home Meds Active Scripts Ondansetron 4 Mg Odt (ONDANSETRON 4 MG ODT) 4 Mg Tab.rapdis, 4 MG PO Q6H PRN for NAUSEA/VOMITING, #20 TAB 0 Refills Prov:IVIS BURGESS MD 12/18/18 Hydrocodone Bit/Acetaminophen (HYDROCODON-ACETAMINOPHEN 5-325) 1 Each Tablet, 1 EACH PO Q4H PRN for PAIN, #6 TAB 0 Refills Prov:IVIS BURGESS MD 12/18/18 Sulfamethoxazole/Trimet 800-160 Mg Tab (BACTRIM DS TABLET) 1 Each Tablet, 1 TAB PO Q12H, #10 TAB 0 Refills Prov:IVIS BURGESS MD 12/18/18 Reported Medications Naproxen Sodium (ALEVE) 220 Mg Tablet, 220 MG PO QID, TAB 12/18/18 Discontinued Reported Medications Levothyroxine Sodium (SYNTHROID) 25 Mcg Tablet, 25 MCG PO QDAY 10/08/18 Discontinued Scripts Fluconazole (DIFLUCAN) 150 Mg Tablet, 150 MG PO QDAY, #2 TAB 0 Refills Take one tablet today, then repeat again in 5 days Prov:IVIS BURGESS MD 12/01/18 Reviewed Nurses Notes: Yes Hx Smoking: No Smoking Status: Never Smoker Exposure to Second Hand Smoke?: Yes Hx Substance Use Disorder: Yes (HX METH) Hx Alcohol Use: Yes Constitutional Vital Sign - Last 24 Hours 12/18/18 12/18/18 12/18/18 12/18/18 02:23 02:23 02:49 03:00 Temp 97.8 Pulse 82 73 Resp 14 B/P (MAP) 122/78 (93) 122/78 102/72 (82) Pulse Ox 97 97 O2 Delivery Room Air 12/18/18 03:19 Pulse 67 Pulse Ox 93 Intake and Output 12/17/18 12/17/18 12/18/18 15:03 23:03 07:03 Intake Total 500 ml Balance 500 ml Physical Exam General Appearance: The patient is alert. No acute distress. Non-toxic in appearance. Eyes: Pupils are equal, round. No pallor, injection or icterus. ENT: Mucous membranes are moist. Respiratory: Lungs are clear to auscultation. Cardiovascular: Regular rate and rhythm. No murmurs, gallops or rubs. Normal capillary refill. Gastrointestinal: Abdomen is soft with some periumbilical and suprapubic tenderness. Nondistended. Guarding, but no rebound. Normal active bowel sounds. No costovertebral angle tenderness with percussion. Neurological: Alert and oriented x3. No focal neurologic deficits Skin: Warm and dry. No rashes. DIFFERENTIAL DIAGNOSIS: After history and physical exam, differential diagnosis was considered for abdominal pain that sounds more likely to be urinary tract infection. We'll start with blood and urine testing and wanted imaging if needed. Medical Decision Making Data Points Result Diagram: 12/18/18 0230 12/18/18 0230 Laboratory Hematology Test 12/18/18 02:30 White Blood Count 12.2 k/uL (4.5-11.0) H Red Blood Count 4.51 M/uL (4.17-5.56) Hemoglobin 13.9 g/dL (12.0-16.0) Hematocrit 41.4 % (34.0-47.0) Mean Corpuscular Volume 91.8 fL (80.0-96.0) Mean Corpuscular Hemoglobin 30.7 pg (26.0-33.0) Mean Corpuscular Hemoglobin Concent 33.5 g/dL (32.0-36.0) Red Cell Distribution Width 13.8 % (11.5-14.5) Platelet Count 427 K/uL (150-450) Mean Platelet Volume 9.8 fL (7.2-11.1) Neutrophils (%) (Auto) 56.8 % (39.4-72.5) Lymphocytes (%) (Auto) 31.5 % (17.6-49.6) Monocytes (%) (Auto) 9.0 % (4.1-12.4) Eosinophils (%) (Auto) 2.5 % (0.4-6.7) Basophils (%) (Auto) 0.2 % (0.3-1.4) L Nucleated RBC Relative Count (auto) 0.0 /100WBC Neutrophils # (Auto) 6.9 K/uL (2.0-7.4) Lymphocytes # (Auto) 3.8 K/uL (1.3-3.6) H Monocytes # (Auto) 1.1 K/uL (0.3-1.0) H Eosinophils # (Auto) 0.3 K/uL (0.0-0.5) Basophils # (Auto) 0.0 K/uL (0.0-0.1) Nucleated RBC Absolute Count (auto) 0.00 K/uL Chemistry Test 12/18/18 02:30 Sodium Level 137 mmol/L (137-145) Potassium Level 4.0 mmol/L (3.5-5.0) Chloride Level 101 mmol/L (98-107) Carbon Dioxide Level 21 mmol/L (22-31) Blood Urea Nitrogen 22 mg/dl (7-18) Creatinine 0.70 mg/dl (0.52-1.04) Glomerular Filtration Rate Calc > 60.0 Random Glucose 98 mg/dl (75-110) Calcium Level 9.6 mg/dl (8.4-10.2) Total Bilirubin 0.4 mg/dl (0.2-1.3) Aspartate Amino Transf (AST/SGOT) 28 U/L (0-35) Alanine Aminotransferase (ALT/SGPT) 24 U/L (0-56) Alkaline Phosphatase 88 U/L (0-126) Total Protein 8.7 g/dl (6.3-8.2) Albumin 4.5 g/dl (3.5-5.0) Amylase Level 99 U/L (0-110) Lipase 143 U/L (23-300) Human Chorionic Gonadotropin, Qual Negative (NEGATIVE) Urinalysis Test 12/18/18 02:19 Urine Color Yellow Urine Clarity Cloudy Urine pH 6.0 pH (4.8-9.5) Urine Specific [place]man 1.024 Urine Protein 30 mg/dL (NEGATIVE) Urine Glucose (UA) Negative mg/dL (NEGATIVE) Urine Ketones Negative mg/dL (NEGATIVE) Urine Blood Large (NEGATIVE) Urine Nitrite Negative (NEGATIVE) Urine Bilirubin Negative (NEGATIVE) Urine Urobilinogen Negative mg/dL (0.2-1.9) Urine Leukocyte Esterase Large (NEGATIVE) Urine RBC 188 /HPF (0-2/HPF) Urine WBC 43 /HPF (0-5/HPF) Urine Squamous Epithelial Cells Many /LPF (</=FEW) Urine Bacteria Negative /HPF (NONE-FEW) Urine Mucus None /HPF (NONE-FEW) Microbiology Microbiology Date/Time Source Procedure Growth Status 12/18/18 02:19 Clean Catch Midstream Ur Urine Culture - Preliminary NO GROWTH SO FAR, SET LATE. REINCUBATED Resulted ED Course/Re-evaluation Clinical Indication for ER IV: Hydration, IV Access ED Course Patient had an IV started and blood work obtained. Gave morphine for pain, Zofran for nausea, and a liter of fluid. Labs came back showing an elevated white count and urinary changes consistent with urinary tract infection. Revi ewed this with the patient we'll start her on Bactrim and provide some Lortab and Zofran as needed tonight for pain. Decision to Disposition Date: Dec 18, 2018 Decision to Disposition Time: 03:11 Depart Departure Latest Vital Signs Vital Signs Date Time Temp Pulse Resp B/P (MAP) Pulse Ox O2 Delivery O2 Flow Rate FiO2 12/18/18 03:19 67 93 12/18/18 03:00 102/72 (82) 12/18/18 02:23 97.8 14 Room Air Impression: Primary Impression: Urinary tract infection Condition: Improved Disposition: HOME OR SELF-CARE Referrals: JAVIER LEVY [employer] (PCP) New Scripts Ondansetron 4 Mg Odt (ONDANSETRON 4 MG ODT) 4 Mg Tab.rapdis 4 MG PO Q6H PRN for NAUSEA/VOMITING, #20 TAB 0 Refills Prov: IVIS BURGESS MD 12/18/18 Hydrocodone Bit/Acetaminophen (HYDROCODON-ACETAMINOPHEN 5-325) 1 Each Tablet 1 EACH PO Q4H PRN for PAIN, #6 TAB 0 Refills Prov: IVIS BURGESS MD 12/18/18 Sulfamethoxazole/Trimet 800-160 Mg Tab (BACTRIM DS TABLET) 1 Each Tablet 1 TAB PO Q12H, #10 TAB 0 Refills Prov: IVIS BURGESS MD 12/18/18 Patient Instructions: Urinary Tract Infection in Women (ED) Additional Instructions: Increase fluid intake. Take the antibiotic Bactrim DS twice a day for 5 days. Take Ibuprofen 200mg over the counter tablets, 4 tablets every 8 hours as needed for pain. For severe pain, take Lortab 5/325, one every 4 hours as needed. For nausea, take Zofran 4mg, one every 6 hours as needed. Problem Qualifiers Primary Impression: Urinary tract infection Urinary tract infection type: acute cystitis Hematuria presence: without hematuria Qualified Codes: N30.00 - Acute cystitis without hematuria IVIS BURGESS MD Dec 18, 2018 02:44
[2018-12-18 02:59] LABS: PLATELET COUNT, AUTOMATED 427 K/uL (150-450)
[2018-12-18 03:00] VITALS: BP 102/72
== END ==
LOC: ER 02:51
DX: N30.00 Acute cystitis without hematuria (principal)
CPT/HCPCS: 81001; 82150; 83690; 84703; 85025; 87088; 96374; 96375; 99284; J2270; J2405; J7030; S0119; 82040; 82247; 82310; 82374; 82435; 82565; 82947; 84075; 84132; 84155; 84295; 84450; 84460; 84520